=== PATIENT | male | born 1935 | race African-American/Black ===

== ENCOUNTER 2018-07-04 16:47 | Inpatient (IN) | payer MEDICARE, BC ==
[~2018-07-04] VITALS: Ht 172.7 cm; Wt 94.8 kg
[~2018-07-04 16:47] MED LIST: AMLO10TA80 PO; ASPI-1073 PO; CARV3.1242 PO; DIGO250T4 PO; DOXA4TAB3 PO; FAMO40TA70 PO; FINA5TAB3 PO; FOLI-43 PO; FURO40TA5 PO; GABA-290 PO; HYDR-3511 PO; LISI40TA4 PO; METF-416 PO; PRAV40TA58 PO; RIVA10TA PO; TAMS0.4C31 PO
[2018-07-04] MEDS ORDERED: LEVOFLOXACIN 750MG PREMIX 150 ML IV ONE (19:15)
[2018-07-04] MEDS ORDERED: SODIUM CHLORIDE 0.9% 500 ML IV ONE (19:15)
[2018-07-04] MEDS ORDERED: ONDANSETRON HCL 4MG/2ML INJ IV STA (19:15)
[2018-07-04] MEDS ORDERED: METRONIDAZOLE 500 MG PREMIX 100 ML IV ONE (19:15)
[2018-07-04 19:25] LABS: CLARITY URINE CLEAR (CLEAR); COLOR URINE YELLOW (YELLOW); KETONES URINE NEGATIVE (NEGATIVE); LEUKOCYTE ESTERASE URINE 1+ (NEGATIVE); NITRITE URINE NEGATIVE (NEGATIVE); OCCULT BLOOD URINE NEGATIVE (NEGATIVE); PH URINE >=9.0 (4.5-8.0); PROTEIN URINE NEGATIVE (NEGATIVE); SPECIFIC GRAVITY URINE 1.006 (1.005-1.030); UROBILINOGEN URINE 0.2 E.U./dL (0.2-1.0)
[2018-07-04 19:36] LABS: *AMPHETAMINES SCREEN URINE NEGATIVE (NEGATIVE)
[2018-07-04 19:37] LABS: *BARBITURATES SCREEN URINE NEGATIVE (NEGATIVE); *BENZODIAZEPINES SCREEN URINE NEGATIVE (NEGATIVE); *COCAINE SCREEN URINE NEGATIVE (NEGATIVE); CANNABINOID URINE SCREEN NEGATIVE (NEGATIVE); METHADONE URINE SCREEN NEGATIVE (NEGATIVE); OPIATES URINE SCREEN NEGATIVE (NEGATIVE); PHENCYCLIDINE URINE SCREEN NEGATIVE (NEGATIVE)
[2018-07-04 20:06] LABS: CHLORIDE 106 mEq/L (98-107)
[2018-07-04 20:08] LABS: PROTHROMBIN TIME 10.5 sec (9.1-11.1)
[2018-07-04 20:09] LABS: BASOPHILS % 0.6 % (0.0-2.0); EOSINOPHILS % 2.1 % (0.0-5.0); HEMATOCRIT. 43.2 % (42.0-52.0); HEMOGLOBIN. 13.7 g/dL (14.0-18.0); LYMPHOCYTES % 13.6 % (20.0-50.0); MEAN CORPUSCULAR HEMOGLOBIN 29.8 pg (28.0-32.0); MEAN CORPUSCULAR VOLUME 94.2 fL (80.0-94.0); MEAN PLATELET VOLUME 10.3 fl (7.4-10.4); MONOCYTES % 7.9 % (2.0-8.0); NEUTROPHILS % 75.8 % (40.0-76.0); PLATELET 169 x1000/uL (130-400); RED BLOOD CELL COUNT 4.59 mill/uL (4.7-6.1); RED CELL DISTRIBUTION WIDTH 13.5 % (11.6-14.6)
[2018-07-04 20:10] LABS: ETHANOL BLOOD < 10 mg/dL
[2018-07-05 03:23] VITALS: BP 128/74
[2018-07-05] MEDS ORDERED: DEXTROSE 50% WATER 50ML SYRINGE IV PRN (04:00)
[2018-07-05 04:58] VITALS: BP 128/74
[2018-07-05] MEDS ORDERED: METH50TA5 PO (06:11)
[2018-07-05] MEDS: BLOOD SUGAR DIAGNOSTIC STRIP TEST SCH ×4 (06:24→21:00)
[2018-07-05] MEDS: INSULIN LISPRO 100 UNITS/ML SUBCUT SCH ×4 (07:50→21:00)
[2018-07-05 08:00] VITALS: BP 116/72
[2018-07-05 11:26] LABS: HEMATOCRIT 39.8 % (42.0-52.0); HEMOGLOBIN 12.5 g/dL (14.0-18.0); MEAN CORPUSCULAR HEMOGLOBIN 29.6 pg (28.0-32.0); MEAN CORPUSCULAR VOLUME 94.4 fL (80.0-94.0); PLATELET 164 x1000/uL (130-400); RED BLOOD CELL COUNT 4.21 mill/uL (4.7-6.1); RED CELL DISTRIBUTION WIDTH 13.2 % (11.6-14.6)
[2018-07-05 11:35] LABS: CHLORIDE 107 mEq/L (98-107)
[2018-07-05 12:04] VITALS: BP 130/81
[2018-07-05 15:24] VITALS: BP 132/79
[2018-07-05] MEDS ORDERED: DIGOXIN 250MCG TABLET PO SCH ×2 (18:45→21:30)
[2018-07-05] MEDS ORDERED: LISINOPRIL 40MG TABLET PO SCH (18:45)
[2018-07-05] MEDS ORDERED: AMLODIPINE 10MG TABLET PO SCH (18:45)
[2018-07-05] MEDS ORDERED: FAMOTIDINE 20MG TABLET PO SCH ×2 (19:30)
[2018-07-05] MEDS ORDERED: RIVAROXABAN 15 MG TABLET PO SCH ×2 (19:30→21:30)
[2018-07-05] MEDS ORDERED: ASPIRIN 81MG TABLET PO SCH (19:30)
[2018-07-05] MEDS ORDERED: FINASTERIDE 5MG TABLET PO SCH (19:30)
[2018-07-05 20:00] VITALS: BP 119/73
[2018-07-05] MEDS ORDERED: FOLIC ACID 1MG TABLET PO SCH (20:00)
[2018-07-05] MEDS ORDERED: SODIUM CHLORIDE 0.45% 1,000 ML IV SCH (20:00)
[2018-07-05] MEDS ORDERED: TAMSULOSIN HCL 0.4MG SR CAPSULE PO SCH (20:00)
[2018-07-05] MEDS: TAMSULOSIN HCL 0.4MG SR CAPSULE PO SCH (20:59)
[2018-07-05] MEDS ORDERED: ATORVASTATIN CALCIUM 10MG TABLET PO SCH (21:00)
[2018-07-05] MEDS ORDERED: GABAPENTIN 300MG CAPSULE PO SCH (21:00)
[2018-07-05] MEDS: FOLIC ACID 1MG TABLET PO SCH (21:00)
[2018-07-05] MEDS: METFORMIN HCL 500MG TABLET PO SCH (21:00)
[2018-07-05] MEDS: FAMOTIDINE 20MG TABLET PO SCH (21:00)
[2018-07-05] MEDS ORDERED: METHAZOLAMIDE 50MG TABLET PO SCH (21:00)
[2018-07-05] MEDS: LEVOFLOXACIN 500MG TABLET PO SCH (21:01)
[2018-07-05] MEDS: CARVEDILOL 3.125 MG TABLET PO SCH (21:01)
[2018-07-05] MEDS: FINASTERIDE 5MG TABLET PO SCH (21:01)
[2018-07-05] MEDS: ASPIRIN 81MG TABLET PO SCH (21:30)
[2018-07-05] MEDS: LISINOPRIL 40MG TABLET PO SCH (21:30)
[2018-07-05] MEDS: AMLODIPINE 10MG TABLET PO SCH (21:30)
[2018-07-05] MEDS: METHAZOLAMIDE 50MG TABLET PO SCH (22:18)
[2018-07-06] VITALS: BP 115/76
[2018-07-06 04:00] VITALS: BP 119/80
[2018-07-06] MEDS: INSULIN LISPRO 100 UNITS/ML SUBCUT SCH ×2 (06:27→12:15)
[2018-07-06] MEDS: BLOOD SUGAR DIAGNOSTIC STRIP TEST SCH ×2 (06:27→12:14)
[2018-07-06] MEDS ORDERED: METFORMIN HCL 500MG TABLET PO SCH (07:50)
[2018-07-06 08:00] VITALS: BP 116/73
[2018-07-06] MEDS: CARVEDILOL 3.125 MG TABLET PO SCH (08:42)
[2018-07-06] MEDS: FAMOTIDINE 20MG TABLET PO SCH (08:58)
[2018-07-06] MEDS: METFORMIN HCL 500MG TABLET PO SCH (08:59)
[2018-07-06] MEDS: FINASTERIDE 5MG TABLET PO SCH (08:59)
[2018-07-06] MEDS: AMLODIPINE 10MG TABLET PO SCH (08:59)
[2018-07-06] MEDS: ASPIRIN 81MG TABLET PO SCH (08:59)
[2018-07-06] MEDS: METHAZOLAMIDE 50MG TABLET PO SCH (09:00)
[2018-07-06] MEDS: FOLIC ACID 1MG TABLET PO SCH (09:00)
[2018-07-06] MEDS: LISINOPRIL 40MG TABLET PO SCH (09:00)
[2018-07-06] MEDS: TAMSULOSIN HCL 0.4MG SR CAPSULE PO SCH (09:00)
[2018-07-06 12:00] VITALS: BP 119/71
[2018-07-06] MEDS: LEVOFLOXACIN 500MG TABLET PO SCH (12:00)
[2018-07-06 14:37] VITALS: BP 119/71
[2018-07-06 16:00] VITALS: BP 126/78
[2018-07-06] MEDS ORDERED: POLYVINYL ALCOHOL OPHTH DROPS 15ML BOTHEYE SCH (16:00)
== END 2018-07-06 16:30 | disposition home or self-care (01) | DRG 690 ==
LOC: ER 16:47 → EDBEDREQ 19:58 → 6WST 21:47 → EDBEDREQ 21:51 → EDBEDREQSVC 21:51 → EDBEDREQTM 21:51 → ENRESERV 07-05 01:07
PROVIDERS: ADMIT Family Medicine; ATTEND Family Medicine
DX: N39.0 Urinary tract infection, site not specified (principal); B96.20 Unspecified Escherichia coli [E. coli] as the cause of diseases classified elsewhere; D63.8 Anemia in other chronic diseases classified elsewhere; E11.9 Type 2 diabetes mellitus without complications; E66.9 Obesity, unspecified; E78.00 Pure hypercholesterolemia, unspecified; E78.5 Hyperlipidemia, unspecified; E86.0 Dehydration; I11.0 Hypertensive heart disease with heart failure; I25.10 Atherosclerotic heart disease of native coronary artery without angina pectoris; I48.91 Unspecified atrial fibrillation; I50.9 Heart failure, unspecified; K21.9 Gastro-esophageal reflux disease without esophagitis; K57.30 Diverticulosis of large intestine without perforation or abscess without bleeding; N40.0 Benign prostatic hyperplasia without lower urinary tract symptoms; Z88.0 Allergy status to penicillin; Z68.31 Body mass index [BMI] 31.0-31.9, adult; Z79.82 Long term (current) use of aspirin; Z79.84 Long term (current) use of oral hypoglycemic drugs
CPT/HCPCS: 36415; 71045; 74176; 80048; 80305; 82962; 83605; 83880; 84145; 84484; 85027; 87077; 87186; 93005; 93970; 96365; 96375; 99285; J1956; J2405; J3490; J7040

== ENCOUNTER 2019-02-15 23:33 | Inpatient (IN) | payer MEDICARE, BC ==
[~2019-02-15] VITALS: Ht 172.7 cm; Wt 103.4 kg
[~2019-02-15 23:33] MED LIST changes: -HYDR-3511 PO; +HYDR-3512 PO; +METH50TA5 PO
[2019-02-16 03:59] LABS: BASOPHILS % 0.7 % (0.0-2.0); EOSINOPHILS % 0.8 % (0.0-5.0); HEMATOCRIT. 41.5 % (42.0-52.0); HEMOGLOBIN. 13.6 g/dL (14.0-18.0); LYMPHOCYTES % 12.9 % (20.0-50.0); MEAN CORPUSCULAR VOLUME 94.8 fL (80.0-94.0); MEAN PLATELET VOLUME 9.5 fl (7.4-10.4); MONOCYTES % 8.8 % (2.0-8.0); NEUTROPHILS % 76.8 % (40.0-76.0); PLATELET 172 x1000/uL (130-400); RED BLOOD CELL COUNT 4.38 mill/uL (4.7-6.1); RED CELL DISTRIBUTION WIDTH 13.1 % (11.6-14.6)
[2019-02-16 04:06] LABS: CHLORIDE 103 mEq/L (98-107)
[2019-02-16 04:33] LABS: PROTHROMBIN TIME 10.4 sec (9.6-11.0)
[2019-02-16 05:51] LABS: CLARITY URINE TURBID (CLEAR); KETONES URINE TRACE (NEGATIVE); LEUKOCYTE ESTERASE URINE 3+ (NEGATIVE); NITRITE URINE POSITIVE (NEGATIVE); OCCULT BLOOD URINE 3+ (NEGATIVE); PROTEIN URINE 2+ (NEGATIVE); SPECIFIC GRAVITY URINE 1.009 (1.005-1.030)
[2019-02-16 05:52] LABS: CREATINE KINASE 378 IU/L (39-308)
[2019-02-16 05:55] LABS: COLOR URINE BLOODY (YELLOW)
[2019-02-16] MEDS ORDERED: IPRATROPIUM/ALBUTEROL 0.5-3(2.5)MG/3ML NEB HHN PRN (10:30)
[2019-02-16] MEDS ORDERED: ACETAMINOPHEN 325MG TABLET PO PRN (10:30)
[2019-02-16] MEDS ORDERED: DEXTROSE 50% WATER 50ML SYRINGE IV PRN (10:30)
[2019-02-16] MEDS ORDERED: LORAZEPAM 0.5MG TABLET PO PRN (10:30)
[2019-02-16] MEDS ORDERED: ONDANSETRON HCL 4MG/2ML INJ IV PRN (10:30)
[2019-02-16] MEDS ORDERED: MAGNESIUM/ALUMINUM HYDROXIDE/SIMETHICONE 30ML UDC PO PRN (10:30)
[2019-02-16] MEDS ORDERED: DOCUSATE SODIUM 100MG CAPSULE PO PRN (10:30)
[2019-02-16] MEDS ORDERED: GUAIFENESIN 200MG/10ML SUGAR FREE UDC PO PRN (10:30)
[2019-02-16] MEDS ORDERED: CLONIDINE 0.1MG TABLET PO PRN (10:30)
[2019-02-16] MEDS ORDERED: NITROGLYCERIN 0.4MG TABLET SL SL PRN (10:30)
[2019-02-16 11:18] LABS: FOLIC ACID (FOLATE) SERUM 16.5 ng/mL (>5.38)
[2019-02-16 11:20] LABS: DIGOXIN 0.1 ng/mL (0.9-2.0)
[2019-02-16] MEDS ORDERED: LEVOFLOXACIN 500MG PREMIX 100 ML IV SCH ×2 (11:30→20:00)
[2019-02-16 14:20] LABS: CREATINE KINASE MB FRACTION 6.3 ng/mL (0.5-3.6)
[2019-02-16] MEDS: BLOOD SUGAR DIAGNOSTIC STRIP TEST SCH ×2 (18:00→20:42)
[2019-02-16] MEDS ORDERED: MORPHINE SULFATE 2 MG/ML CPJ (NOT FOR IM USE) IV PRN (18:00)
[2019-02-16] MEDS ORDERED: TRAMADOL 50MG TABLET PO PRN (18:00)
[2019-02-16 18:04] VITALS: BP 139/94
[2019-02-16 20:00] VITALS: BP 145/80
[2019-02-16] MEDS ORDERED: CEFTRIAXONE 1 G PREMIX 50 ML IV SCH (20:00)
[2019-02-16] MEDS: INSULIN LISPRO 100 UNITS/ML SUBCUT SCH ×2 (20:25→20:44)
[2019-02-16] MEDS ORDERED: ASCORBIC ACID 500 MG TABLET PO SCH (21:00)
[2019-02-16] MEDS ORDERED: ZOLPIDEM TARTRATE 5MG TABLET PO PRN (21:00)
[2019-02-16] MEDS ORDERED: NA PHOS,M-B/NA PHOS,DI-BA ENEMA 118ML PR PRN (21:00)
[2019-02-16] MEDS: LISINOPRIL 20MG TABLET PO SCH (21:10)
[2019-02-16] MEDS: CARVEDILOL 3.125 MG TABLET PO SCH (21:12)
[2019-02-16] MEDS: DIGOXIN 250MCG TABLET PO SCH (21:45)
[2019-02-17] VITALS (7 sets, daily range): BP systolic 112–165; BP diastolic 71–92
[2019-02-17] MEDS: BLOOD SUGAR DIAGNOSTIC STRIP TEST SCH ×4 (07:20→23:20)
[2019-02-17] MEDS: INSULIN LISPRO 100 UNITS/ML SUBCUT SCH ×4 (09:09→23:26)
[2019-02-17] MEDS: ZINC SULFATE 220 MG ( 50 ) CAPSULE PO SCH (11:55)
[2019-02-17] MEDS: CARVEDILOL 3.125 MG TABLET PO SCH ×2 (11:55→23:21)
[2019-02-17] MEDS: TAMSULOSIN HCL 0.4MG SR CAPSULE PO SCH (11:55)
[2019-02-17] MEDS: LISINOPRIL 20MG TABLET PO SCH ×2 (11:56→23:21)
[2019-02-17] MEDS: DUTASTERIDE 0.5MG CAPSULE PO SCH (11:56)
[2019-02-17] MEDS: LEVOFLOXACIN 500MG PREMIX 100 ML IV SCH (13:09)
[2019-02-17] MEDS: CEFTRIAXONE 1 G PREMIX 50 ML IV SCH (14:24)
[2019-02-17] MEDS: DIGOXIN 250MCG TABLET PO SCH (18:05)
[2019-02-18] VITALS: BP 118/65
[2019-02-18 04:00] VITALS: BP 112/60
[2019-02-18] MEDS: BLOOD SUGAR DIAGNOSTIC STRIP TEST SCH ×4 (07:33→20:30)
[2019-02-18 08:00] VITALS: BP 97/44
[2019-02-18] MEDS: INSULIN LISPRO 100 UNITS/ML SUBCUT SCH ×4 (08:04→20:51)
[2019-02-18] MEDS: CARVEDILOL 3.125 MG TABLET PO SCH ×2 (09:00→20:42)
[2019-02-18] MEDS: LISINOPRIL 20MG TABLET PO SCH ×2 (09:00→20:42)
[2019-02-18] MEDS: DUTASTERIDE 0.5MG CAPSULE PO SCH (09:25)
[2019-02-18] MEDS: TAMSULOSIN HCL 0.4MG SR CAPSULE PO SCH (09:25)
[2019-02-18] MEDS: ZINC SULFATE 220 MG ( 50 ) CAPSULE PO SCH (09:25)
[2019-02-18 12:00] VITALS: BP 129/85
[2019-02-18] MEDS: LEVOFLOXACIN 500MG PREMIX 100 ML IV SCH (13:16)
[2019-02-18] MEDS: CEFTRIAXONE 1 G PREMIX 50 ML IV SCH (14:42)
[2019-02-18 16:00] VITALS: BP 143/71
[2019-02-18] MEDS: DIGOXIN 250MCG TABLET PO SCH (18:05)
[2019-02-18 20:00] VITALS: BP 109/70
[2019-02-19 00:11] VITALS: BP 152/85
[2019-02-19 04:00] VITALS: BP 135/84
[2019-02-19] MEDS: BLOOD SUGAR DIAGNOSTIC STRIP TEST SCH ×5 (06:24→23:44)
[2019-02-19] MEDS: INSULIN LISPRO 100 UNITS/ML SUBCUT SCH ×4 (06:34→21:00)
[2019-02-19 07:56] VITALS: BP 102/48
[2019-02-19] MEDS: CARVEDILOL 3.125 MG TABLET PO SCH ×2 (07:57→23:41)
[2019-02-19] MEDS: LISINOPRIL 20MG TABLET PO SCH ×2 (07:57→23:40)
[2019-02-19] MEDS: TAMSULOSIN HCL 0.4MG SR CAPSULE PO SCH (08:02)
[2019-02-19] MEDS: DUTASTERIDE 0.5MG CAPSULE PO SCH (08:02)
[2019-02-19] MEDS: ZINC SULFATE 220 MG ( 50 ) CAPSULE PO SCH (08:02)
[2019-02-19 12:00] VITALS: BP 116/62
[2019-02-19 12:33] LABS: DIGOXIN 0.6 ng/mL (0.9-2.0)
[2019-02-19] MEDS: LEVOFLOXACIN 500MG PREMIX 100 ML IV SCH (13:05)
[2019-02-19 16:00] VITALS: BP 96/61
[2019-02-19] MEDS: CEFTRIAXONE 1 G PREMIX 50 ML IV SCH (16:49)
[2019-02-19] MEDS: DIGOXIN 250MCG TABLET PO SCH (17:56)
[2019-02-19 20:42] VITALS: BP 117/73
[2019-02-20 00:02] VITALS: BP 122/77
[2019-02-20 04:00] VITALS: BP 124/64
[2019-02-20 08:00] VITALS: BP 123/78
[2019-02-20] MEDS: DUTASTERIDE 0.5MG CAPSULE PO SCH (09:01)
[2019-02-20] MEDS: ZINC SULFATE 220 MG ( 50 ) CAPSULE PO SCH (09:01)
[2019-02-20] MEDS: CARVEDILOL 3.125 MG TABLET PO SCH (09:02)
[2019-02-20] MEDS: TAMSULOSIN HCL 0.4MG SR CAPSULE PO SCH (09:02)
[2019-02-20] MEDS: LISINOPRIL 20MG TABLET PO SCH (09:03)
[2019-02-20] MEDS: INSULIN LISPRO 100 UNITS/ML SUBCUT SCH (09:03)
[2019-02-20] MEDS ORDERED: LEVOFLOXACIN 500MG TABLET PO SCH (11:00)
[2019-02-20 11:26] VITALS: BP 123/78
== END 2019-02-20 12:20 | disposition home or self-care (01) | DRG 690 ==
LOC: ER 23:33 → 6WST 02-16 05:11 → SUPCPDRO 02-16 09:12 → ENRESERV 02-16 15:44
PROVIDERS: ADMIT Internal Medicine; ATTEND Internal Medicine
PROC: 30233K1 Transfusion of Nonautologous Frozen Plasma into Peripheral Vein, Percutaneous Approach (ICD-10-PCS; principal; 2019-02-16)
DX: N39.0 Urinary tract infection, site not specified (principal); E66.9 Obesity, unspecified; E78.00 Pure hypercholesterolemia, unspecified; I10 Essential (primary) hypertension; I48.91 Unspecified atrial fibrillation; E11.65 Type 2 diabetes mellitus with hyperglycemia; R31.0 Gross hematuria; D63.8 Anemia in other chronic diseases classified elsewhere; N40.1 Benign prostatic hyperplasia with lower urinary tract symptoms; R33.8 Other retention of urine; Z79.4 Long term (current) use of insulin; Z95.810 Presence of automatic (implantable) cardiac defibrillator; Z68.34 Body mass index [BMI] 34.0-34.9, adult; Z88.0 Allergy status to penicillin; Z79.899 Other long term (current) drug therapy; Z79.84 Long term (current) use of oral hypoglycemic drugs
CPT/HCPCS: 36415; 80061; 80162; 81003; 82550; 82553; 82565; 82607; 82746; 82962; 83036; 83540; 83550; 84484; 84520; 86850; 86900; 86927; 93306; 93970; 97116; 97162; 97166; 99285; A6261; J0696; J1815; J1956; J7040; P9017; A4315